=== PATIENT | male | born 1955 | race African-American/Black ===

== ENCOUNTER 2024-01-13 15:23 | Emergency (ER) | payer MEDICARE, OTHER ==
[2024-01-13 17:16] LABS: #Eosinophils 0.1 thou/uL (0.0-0.7); #Lymphocytes 2.2 thou/uL (1.20-3.40); #Monocytes 0.6 thou/uL (0.11-0.59); %Basophils 0.6 % (0.0-1.0); %Eosinophils 2.6 % (0.0-10.0); %Lymphocytes 44.5 % (21.0-51.0); %Monocytes 11.4 % (0.0-10.0); %Neutrophils 40.8 % (42.0-75.0); Hematocrit 34.8 % (42.0-52.0); Hemoglobin 11.5 g/dL (14.0-18.0); Mean Corpuscular HGB CONC 33.2 g/dL (32.0-36.0); Mean Corpuscular Hemoglobin 28.3 pg (27.0-31.0); Mean Corpuscular Volume 85.3 fl (78.0-98.0); Platelet Count 19 10x3/uL (130-400); RBC Distribution Width 12.2 % (11.5-14.5); Red Blood Cell (RBC) Count 4.08 mill/uL (4.70-6.10)
[2024-01-13 22:14] LABS: Platelet Adequacy Comment Significant decrease
== END 2024-01-13 19:00 | disposition home or self-care (01) ==
LOC: NAV ERS 15:23
DX: D69.6 Thrombocytopenia, unspecified (principal); I10 Essential (primary) hypertension; Z79.82 Long term (current) use of aspirin
CPT/HCPCS: 36415; 85025; 99284